=== PATIENT | female | born 1985 | race American Indian/Alaskan Native ===

== ENCOUNTER 2019-12-19 11:56 | Day surgery (SDC) | payer OTHER ==
[2019-12-19 16:44] VITALS: BP 112/66
== END 2019-12-19 11:57 | disposition home or self-care (01) ==
LOC: OR 11:56
PROVIDERS: ATTEND Surgery
DX: L02.411 Cutaneous abscess of right axilla (principal); F17.210 Nicotine dependence, cigarettes, uncomplicated; Z79.899 Other long term (current) drug therapy; Z91.040 Latex allergy status; Z98.51 Tubal ligation status; Z98.890 Other specified postprocedural states
CPT/HCPCS: 10060; 81025; 87075; 87116; J0690; J1170; J1200; J1644; J2250; J2370; J2405; J2704; J3010; J7120

== ENCOUNTER 2019-12-25 13:02 | Outpatient (CLI) | payer OTHER ==
[2019-12-25] MEDS ORDERED: LIDOCAINE (4%) 40 MG/ML TOPICAL SOLN 50 ML BOTTLE TP ONE (13:18)
== END 2019-12-25 13:03 | disposition home or self-care (01) ==
LOC: WOUND 13:02
PROVIDERS: ATTEND Surgery
DX: L73.2 Hidradenitis suppurativa (principal); F17.210 Nicotine dependence, cigarettes, uncomplicated
CPT/HCPCS: 11042; G0463; 99204; 99214

== ENCOUNTER 2020-01-08 13:06 | Outpatient (CLI) | payer OTHER ==
[2020-01-08] MEDS ORDERED: LIDOCAINE (4%) 40 MG/ML TOPICAL SOLN 50 ML BOTTLE TP ONE (13:08)
== END 2020-01-08 13:07 | disposition home or self-care (01) ==
LOC: WOUND 13:06
PROVIDERS: ATTEND Surgery
DX: L73.2 Hidradenitis suppurativa (principal); F17.210 Nicotine dependence, cigarettes, uncomplicated

== ENCOUNTER 2020-05-07 12:16 | Day surgery (SDC) | payer OTHER ==
[2020-05-07] MEDS ORDERED: ceFAZolin/STERILE WATER 2 GM/20 ML SYRINGE IV NR (13:13)
[2020-05-07] MEDS ORDERED: HEPARIN 5,000 UNIT/1 ML VIAL SUB-Q NR (13:14)
[2020-05-07] MEDS ORDERED: LACTATED RINGERS 1,000 ML IV SCH (13:23)
[2020-05-07] MEDS ORDERED: ONDANSETRON 4 MG/2 ML INJ IV PRN (13:27)
[2020-05-07] MEDS ORDERED: HYDROmorphone 1 MG/1 ML INJ IV PRN ×2 (13:27)
--- NOTE | 2020-05-07 13:30 | Anesthesia Day of Surgery ---
Anesthesia Day of Surgery - Day of Surgery Patient Examined: Yes Patient H&P Reviewed: Yes Patient is NPO: Yes
--- NOTE | 2020-05-07 13:31 | Anesthesia Consultation ---
Anesthesia Consult and Med Hx Date of service: 05/07/20 - Airway Anesthetic Teeth Evaluation: Good ROM Head & Neck: Adequate Mental/Hyoid Distance: Adequate Mallampati Class: Class I Intubation Access Assessment: Good - Pre-Operative Health Status ASA Pre-Surgery Classification: ASA2 Proposed Anesthetic Plan: General - Pulmonary Hx Smoking: Yes (THC) Hx Respiratory Symptoms: No (+2FS) - Cardiovascular System Hx Hypertension: No - Central Nervous System CVA: No - Endocrine Hx Renal Disease: No Hx Liver Disease: No Hx Insulin Dependent Diabetes: No Hx Non-Insulin Dependent Diabetes: No Hx Thyroid Disease: No - Hematic Hx Sickle Cell Disease: No - Other Systems Hx Substance Use: Yes Hx Cancer: No Hx Obesity: Yes
[2020-05-07] MEDS ORDERED: LIDOCAINE MPF (2%) 20 MG/1 ML VIAL 5 ML ONE (14:20)
[2020-05-07] MEDS ORDERED: ONDANSETRON 4 MG/2 ML INJ ONE (14:20)
[2020-05-07] MEDS ORDERED: dexAMETHasone 20 MG/5 ML VIAL ONE (14:20)
[2020-05-07] MEDS ORDERED: HYDROmorphone 1 MG/1 ML INJ ONE ×2 (14:20→15:16)
[2020-05-07] MEDS ORDERED: propofoL 200 MG/20 ML VIAL IV ONE (14:21)
[2020-05-07] MEDS ORDERED: SODIUM CHLORIDE 0.9% IRR 1,500 ML BOTTLE IR ONE (14:48)
[2020-05-07] MEDS ORDERED: BUPIVACAINE-EPINEPHRINE/PF 0.5%-1:200,000 (30 ML) VIAL INFILTRATI ONE ×2 (15:13→15:24)
[2020-05-07] MEDS ORDERED: KETOROLAC 30 MG/1 ML INJ ONE (15:41)
--- NOTE | 2020-05-07 15:50 | Procedure Note ---
Date of procedure: 05/07/20 Pre-op diagnosis: Breast abscesses X 3 Post-op diagnosis: same Procedure: I&D of breast abscesses X 3 Description of procedure: Pt was placed supine on the OR table. After adequate general anesthesia, pt's left breast and axillary area were prepped and draped. Three separate abscesses were then I&d'd with the Bovie. Two of these were located in the lower, inner quadrant and the third abscess was located within the left axillary tail. C&S was obtained from the abscess fluid of the largest abscess. Hemostasis was obtained with the Bovie. Wounds were irrigated with warm saline and packed open with dilute Betadine moistened Kerlix roll. This was followed by dry 4 X 4's and Medipore tape. Pt tolerated the procedure well. She was taken to PACU in stable condition. Anesthesia: other (LMA) Surgeon: ELAINA LOPEZ Estimated blood loss: minimal Pathology: list (C&S) Specimen disposition: to lab Condition: stable Disposition: PACU
[2020-05-07] MEDS ORDERED: diphenhydrAMINE 50 MG/ML VIAL IV ONE (16:08)
[2020-05-07 16:37] VITALS: BP 109/72
--- NOTE | 2020-05-07 16:55 | Post Anesthesia Evaluation ---
- Post Anesthesia Evaluation Patient Participated: Yes Airway Patent: Yes Stable Respiratory Function: Yes Nausea/Vomiting: No Temp > 96.8F: Yes Pain Manageable: Yes Adequeate Hydration: Yes Anesthesia Complications: No Block Receding Appropriately: Not Applicable Patient on Ventilator: No
== END 2020-05-07 16:55 | disposition home or self-care (01) ==
LOC: OR 12:16
PROVIDERS: ATTEND Surgery
DX: N61.1 Abscess of the breast and nipple (principal); F17.210 Nicotine dependence, cigarettes, uncomplicated; K21.9 Gastro-esophageal reflux disease without esophagitis; E66.9 Obesity, unspecified; M19.90 Unspecified osteoarthritis, unspecified site; Z91.040 Latex allergy status; Z79.899 Other long term (current) drug therapy; Z98.51 Tubal ligation status; Z98.890 Other specified postprocedural states; Z68.35 Body mass index [BMI] 35.0-35.9, adult
CPT/HCPCS: 10061; 81025; 87075; 87116; J0690; J1100; J1170; J1200; J1644; J1885; J2405; J2704; J7120

== ENCOUNTER 2020-05-08 09:52 | Outpatient (CLI) | payer OTHER | END 2020-05-08 09:53 | disposition home or self-care (01) | LOC: WOUND 09:52 | PROVIDERS: ATTEND Surgery | DX: L73.2 Hidradenitis suppurativa (principal); Z98.51 Tubal ligation status; F17.210 Nicotine dependence, cigarettes, uncomplicated | CPT/HCPCS: 99214; G0463 ==

== ENCOUNTER 2020-05-13 13:21 | Outpatient (CLI) | payer OTHER | END 2020-05-13 13:22 | disposition home or self-care (01) | LOC: WOUND 13:21 | PROVIDERS: ATTEND Surgery | DX: L73.2 Hidradenitis suppurativa (principal); Z98.51 Tubal ligation status; F17.210 Nicotine dependence, cigarettes, uncomplicated ==

== ENCOUNTER 2020-05-20 13:21 | Outpatient (CLI) | payer OTHER ==
[2020-05-20] MEDS ORDERED: LIDOCAINE (4%) 40 MG/ML TOPICAL SOLN 50 ML BOTTLE TP ONE (13:27)
== END 2020-05-20 13:22 | disposition home or self-care (01) ==
LOC: WOUND 13:21
PROVIDERS: ATTEND Surgery
DX: L73.2 Hidradenitis suppurativa (principal); Z98.51 Tubal ligation status; F17.210 Nicotine dependence, cigarettes, uncomplicated
CPT/HCPCS: 17250

== ENCOUNTER 2020-06-03 13:21 | Outpatient (CLI) | payer OTHER | END 2020-06-03 13:22 | disposition home or self-care (01) | LOC: WOUND 13:21 | PROVIDERS: ATTEND Surgery | DX: L73.2 Hidradenitis suppurativa (principal); F17.210 Nicotine dependence, cigarettes, uncomplicated; Z98.51 Tubal ligation status | CPT/HCPCS: 99213; G0463 ==

== ENCOUNTER 2020-09-07 08:33 | Day surgery (SDC) | payer OTHER ==
[~2020-09-07 08:33] MED LIST: BUPIVACAINE/PF (0.5%) 5 MG/1 ML 30 ML VIAL INFILTRATI ONE; LIDOCAINE 1.5% /EPINEPHRINE 1:200,000 AMP (5 ML) INFILTRATI ONE
[2020-09-07] MEDS ORDERED: HYDROmorphone 1 MG/1 ML INJ IV PRN ×2 (10:02)
[2020-09-07] MEDS ORDERED: ONDANSETRON 4 MG/2 ML INJ IV PRN (10:02)
--- NOTE | 2020-09-07 10:02 | Anesthesia Day of Surgery ---
Anesthesia Day of Surgery - Day of Surgery Patient Examined: Yes Patient H&P Reviewed: Yes Patient is NPO: Yes
--- NOTE | 2020-09-07 10:05 | Anesthesia Consultation ---
Anesthesia Consult and Med Hx Date of service: 09/07/20 - Airway Anesthetic Teeth Evaluation: Poor (Missing/broken) ROM Head & Neck: Adequate Mental/Hyoid Distance: Adequate Mallampati Class: Class II Intubation Access Assessment: Good - Pre-Operative Health Status ASA Pre-Surgery Classification: ASA2 Proposed Anesthetic Plan: General - Pulmonary Hx Smoking: Yes (THC AND 1/4 PPD) Hx Respiratory Symptoms: No (+2FS) Hx Sleep Apnea: No (ZENY PRE SCREEN LOW RISK) - Cardiovascular System Hx Hypertension: No - Central Nervous System CVA: No Hx Psychiatric Problems: Yes (Anxiety) - Gastrointestinal Hx Gastroesophageal Reflux Disease: Yes (Dietary) - Endocrine Hx Renal Disease: No Hx Liver Disease: No Hx Insulin Dependent Diabetes: No Hx Non-Insulin Dependent Diabetes: No Hx Thyroid Disease: No - Hematic Hx Anemia: Yes (NOT RECENT) Hx Sickle Cell Disease: No - Other Systems Hx Substance Use: Yes (MARIJUANA) Hx Cancer: No Hx Obesity: Yes - Additional Comments Anesthesia Medical History Comments: Here [id number] and [id number]
[2020-09-07] MEDS ORDERED: LACTATED RINGERS 1,000 ML IV SCH (10:30)
[2020-09-07] MEDS ORDERED: HEPARIN 5,000 UNIT/1 ML VIAL SUB-Q NR (10:30)
[2020-09-07] MEDS ORDERED: ceFAZolin/STERILE WATER 2 GM/20 ML SYRINGE IV NR (11:00)
[2020-09-07] MEDS ORDERED: MIDAZOLAM 2 MG/2 ML INJ IV NR (11:00)
[2020-09-07] MEDS ORDERED: HYDROmorphone 1 MG/1 ML INJ ONE ×2 (12:05→12:39)
[2020-09-07] MEDS ORDERED: LIDOCAINE MPF (2%) 20 MG/1 ML VIAL 5 ML ONE (12:06)
[2020-09-07] MEDS ORDERED: propofoL 200 MG/20 ML VIAL IV ONE (12:06)
[2020-09-07] MEDS ORDERED: dexAMETHasone 20 MG/5 ML VIAL ONE (12:32)
[2020-09-07] MEDS ORDERED: BUPIVACAINE/PF (0.5%) 5 MG/1 ML 30 ML VIAL INFILTRATI ONE (12:40)
[2020-09-07] MEDS ORDERED: SODIUM CHLORIDE 0.9% IRR 1,500 ML BOTTLE IR ONE (12:40)
[2020-09-07] MEDS ORDERED: KETOROLAC 30 MG/1 ML INJ ONE (13:00)
[2020-09-07] MEDS ORDERED: ONDANSETRON 4 MG/2 ML INJ ONE (13:11)
--- NOTE | 2020-09-07 13:23 | Procedure Note ---
Date of procedure: 09/07/20 Pre-op diagnosis: Right axillary hidradenitis suppurativa Post-op diagnosis: same Procedure: Excision of right axillary hidradenitis suppurativa Description of procedure: Pt was placed supine on the OR table. General anesthesia was administered. Right arm was abducted to 90 degrees on an arm board. Right axilla, chest and shoulder were prepped and draped. Skin and SQ tissue about the involved tissue were infiltrated with 14 ml of 0.5% Marcaine. The skin was incised with a scalpel. During the excision, I entered an abscess cavity which precluded any consideration of closing the wound. All indurated and involved hidradenitis tissue encountered was excised. The final wound measurements were: 10.5 X 6.5 X 1 cm. Hemostasis was obtained with the Bovie. Wound was irrigated with warm saline and was packed open with a dilute Betadine moistened Kerlix roll, followed by dry 4 X 4's, an ABD and Medipore tape. Pt tolerated the procedure well. She was taken to PACU in stable condition. Anesthesia: other (LMA) Surgeon: ELAINA LOPEZ Estimated blood loss: 50-100ml Pathology: list (Right axillary hidradenitis) Specimen disposition: to lab Condition: stable Disposition: PACU
[2020-09-07 17:23] VITALS: BP 122/71
== END 2020-09-07 08:34 | disposition home or self-care (01) ==
LOC: OR 08:33
PROVIDERS: ATTEND Surgery
DX: L73.2 Hidradenitis suppurativa (principal); F17.210 Nicotine dependence, cigarettes, uncomplicated; K21.9 Gastro-esophageal reflux disease without esophagitis; E66.9 Obesity, unspecified; M19.90 Unspecified osteoarthritis, unspecified site; F41.9 Anxiety disorder, unspecified; D64.9 Anemia, unspecified; Z98.890 Other specified postprocedural states; Z91.040 Latex allergy status; Z79.899 Other long term (current) drug therapy; Z98.51 Tubal ligation status; Z68.36 Body mass index [BMI] 36.0-36.9, adult
CPT/HCPCS: 11450; 81025; 88304; J0690; J1100; J1170; J1644; J1885; J2405; J2704; J7120; 88305

== ENCOUNTER 2020-09-09 10:31 | Outpatient (CLI) | payer OTHER ==
[2020-09-09] MEDS ORDERED: LIDOCAINE (4%) 40 MG/ML TOPICAL SOLN 50 ML BOTTLE TP ONE (10:39)
== END 2020-09-09 10:32 | disposition home or self-care (01) ==
LOC: WOUND 10:31
PROVIDERS: ATTEND Surgery
DX: T81.89XA Other complications of procedures, not elsewhere classified, initial encounter (principal); L73.2 Hidradenitis suppurativa; F17.210 Nicotine dependence, cigarettes, uncomplicated; Z98.51 Tubal ligation status; Y83.8 Other surgical procedures as the cause of abnormal reaction of the patient, or of later complication, without mention of misadventure at the time of the procedure; Y92.238 Other place in hospital as the place of occurrence of the external cause
CPT/HCPCS: 17250; G0463; 99214

== ENCOUNTER 2020-09-28 08:20 | Outpatient (CLI) | payer OTHER ==
[2020-09-28] MEDS ORDERED: LIDOCAINE (4%) 40 MG/ML TOPICAL SOLN 50 ML BOTTLE TP ONE (08:27)
[2020-09-28] MEDS ORDERED: SILVER NITRATE APPLICATOR 1 EA TP ONE (08:50)
== END 2020-09-28 08:21 | disposition home or self-care (01) ==
LOC: WOUND 08:20
PROVIDERS: ATTEND Surgery
DX: T81.89XD Other complications of procedures, not elsewhere classified, subsequent encounter (principal); L73.2 Hidradenitis suppurativa; F17.210 Nicotine dependence, cigarettes, uncomplicated; Z98.51 Tubal ligation status; Y83.8 Other surgical procedures as the cause of abnormal reaction of the patient, or of later complication, without mention of misadventure at the time of the procedure
CPT/HCPCS: 17250

== ENCOUNTER 2021-01-19 08:09 | Day surgery (SDC) | payer OTHER ==
[~2021-01-19 08:09] MED LIST changes: -BUPIVACAINE/PF (0.5%) 5 MG/1 ML 30 ML VIAL INFILTRATI ONE; +LACTATED RINGERS 1,000 ML IV SCH; -LIDOCAINE 1.5% /EPINEPHRINE 1:200,000 AMP (5 ML) INFILTRATI ONE; +MIDAZOLAM 2 MG/2 ML INJ IV NR
[2021-01-19] MEDS ORDERED: propofoL 200 MG/20 ML VIAL IV ONE (08:25)
[2021-01-19] MEDS ORDERED: fentaNYL 100 MCG/2 ML INJ ONE (08:25)
[2021-01-19] MEDS ORDERED: LIDOCAINE PF 100 MG/5 ML (CARDIAC SYRINGE) IV ONE (08:26)
--- NOTE | 2021-01-19 08:33 | History and Physical Report ---
History of Present Illness Date of examination: 01/19/21 Chief complaint: Right axillary hidradenitis History of present illness: 35 yo female with a h/o recurring right axillary infections secondary to hidradenitis. Past History Past Medical History: No medical history Medications and Allergies Allergies Allergy/AdvReac Type Severity Reaction Status Date / Time latex Allergy Itching Verified 05/07/20 13:15 Home Medications Medication Instructions Recorded Confirmed Last Taken Type oxyCODONE /ACETAMINOPHEN [Percocet 1 tab PO PRN PRN 01/15/21 Unknown History ] Active Meds: Active Medications Lactated Ringer's (Lactated Ringers) 1,000 mls @ 100 mls/hr IV DIRECT OCTAVIANO Stop: 01/19/21 23:59 Midazolam HCl (Midazolam 2 Mg/2 Ml Inj) 2 mg IV PREOP NR Stop: 01/19/21 23:59 Review of Systems All systems: negative (none) Exam - General physical appearance Positive: well developed, well nourished, no distress - Eyes Positive: PERRL, normal occular movement - ENT Positive: normal pinna, normal nares, normal mucosa, no hearing loss, no congestion - Neck Positive: no masses, no bruits, trachea midline, no venous distension - Respiratory Positive: normal expansion, normal respiratory effort, clear to auscultation - Cardiovascular Rhythm: regular Heart Sounds: Present: S1 & S2. Absent: rub, click - Extremities Extremities: no ischemia, pulses symmetrical, No edema - Breasts Breasts: normal, no mass, no skin changes - Abdomen Abdomen: Present: soft, bowel sounds normal. Absent: tender, distended Hernia: none - Genitourinary Male Genitourinary: normal Female Genitourinary: normal - Integumentary no rash, no growths, no abnormal pigmentation, other (Right axilla c/w chronic hidradenitis.) - Neurologic Neurologic: alert and oriented to time, place and person, motor strength and sensation are grossly intact - Musculoskeletal normal gait, normal posture - Psychiatric Psychiatric: appropriate mood/affect, intact judgment & insight Assessment and Plan - Patient Problems (1) Hidradenitis axillaris Current Visit: Yes Status: Acute Plan to address problem: 1) Excise right axillary hidradenitis 2) Prophylactic Ancef, SCD and SQ Heparin
[2021-01-19] MEDS ORDERED: HYDROcodone/ACETAMINOPHEN 5-325 MG TAB PO PRN (08:42)
[2021-01-19] MEDS ORDERED: ONDANSETRON 4 MG/2 ML INJ IV PRN (08:42)
[2021-01-19] MEDS ORDERED: HEPARIN 5,000 UNIT/1 ML VIAL SUB-Q NR (08:45)
--- NOTE | 2021-01-19 08:50 | Anesthesia Consultation ---
Anesthesia Consult and Med Hx Date of service: 01/19/21 - Airway Anesthetic Teeth Evaluation: Good ROM Head & Neck: Adequate Mental/Hyoid Distance: Adequate Mallampati Class: Class III Intubation Access Assessment: Possibly Difficult (previous LMA 3 and 4) - Pre-Operative Health Status ASA Pre-Surgery Classification: ASA2 Proposed Anesthetic Plan: General - Pulmonary Hx Smoking: Yes (1/4 PPD) Hx Respiratory Symptoms: No Hx Sleep Apnea: No (ZENY PRE SCREEN LOW RISK) - Cardiovascular System Hx Hypertension: No Hx Heart Attack/AMI: No Hx Percutaneous Transluminal Coronary Angioplasty (PTCA): No - Central Nervous System CVA: No Hx Psychiatric Problems: Yes (Anxiety) - Gastrointestinal Hx Gastroesophageal Reflux Disease: Yes (diet controlled) - Endocrine Hx Renal Disease: No Hx Liver Disease: No Hx Insulin Dependent Diabetes: No Hx Non-Insulin Dependent Diabetes: No Hx Thyroid Disease: No - Other Systems Hx Substance Use: Yes (THC) Hx Obesity: Yes (BMI 35) - Additional Comments Anesthesia Medical History Comments: No hx anesthetic complications.
--- NOTE | 2021-01-19 08:50 | Anesthesia Day of Surgery ---
Anesthesia Day of Surgery - Day of Surgery Patient Examined: Yes Patient H&P Reviewed: Yes Patient is NPO: Yes
[2021-01-19] MEDS ORDERED: ceFAZolin/Water 2 GM/20 ML 2 GM/20 ML SYRINGE IV NR (09:00)
[2021-01-19] MEDS ORDERED: predniSONE 20 MG TAB PO NR (10:00)
[2021-01-19] MEDS ORDERED: KETAMINE/STERILE WATER 50 MG/ML SYRINGE ONE (10:31)
[2021-01-19] MEDS ORDERED: HYDROmorphone 1 MG/1 ML INJ ONE (10:47)
[2021-01-19] MEDS ORDERED: SODIUM CHLORIDE 0.9% IRR 1,000 ML BOTTLE IR ONE (10:49)
[2021-01-19] MEDS ORDERED: ONDANSETRON 4 MG/2 ML INJ ONE (10:50)
[2021-01-19] MEDS ORDERED: dexAMETHasone 20 MG/5 ML VIAL ONE (10:50)
[2021-01-19] MEDS: HYDROmorphone 1 MG/1 ML INJ IV PRN ×2 (11:19→11:29)
--- NOTE | 2021-01-19 11:35 | Procedure Note ---
Date of procedure: 01/19/21 Pre-op diagnosis: Right axillary hidradenitis Post-op diagnosis: same Procedure: Excision of right axillary hidradenitis Description of procedure: Pt was placed supine on the OR table. General anesthesia was administered. Right arm was abducted to 90 degrees on an arm board. Right axilla was prepped and draped. The right axillary hidradenitis was excised with the Bovie. Hemostasis was obtained with the Bovie. Wound was packed open with a dilute Betadine moistened Kerlix roll followed by an island dressing. Pt tolerated the procedure well. Pt was taken to PACU in stable condition. Anesthesia: GETA Surgeon: ELAINA LOPEZ Estimated blood loss: minimal Pathology: list (right axillary hidradenitis tissue) Specimen disposition: to lab Condition: stable Disposition: PACU
[2021-01-19] MEDS ORDERED: oxyCODONE /ACETAMINOPHEN 5-325MG TAB PO PRN (11:41)
[2021-01-19 12:22] VITALS: BP 116/71
--- NOTE | 2021-01-19 13:01 | Post Anesthesia Evaluation ---
- Post Anesthesia Evaluation Patient Participated: Yes Airway Patent: Yes Stable Respiratory Function: Yes Nausea/Vomiting: No Temp > 96.8F: Yes Pain Manageable: Yes Adequeate Hydration: Yes Anesthesia Complications: No
== END 2021-01-19 12:30 | disposition home or self-care (01) ==
LOC: OR 08:09
PROVIDERS: ATTEND Surgery
DX: L73.2 Hidradenitis suppurativa (principal); F17.210 Nicotine dependence, cigarettes, uncomplicated; K21.9 Gastro-esophageal reflux disease without esophagitis; E66.9 Obesity, unspecified; M19.90 Unspecified osteoarthritis, unspecified site; F41.9 Anxiety disorder, unspecified; D64.9 Anemia, unspecified; Z91.040 Latex allergy status; Z79.899 Other long term (current) drug therapy; Z98.51 Tubal ligation status; Z98.890 Other specified postprocedural states; Z68.35 Body mass index [BMI] 35.0-35.9, adult
CPT/HCPCS: 11450; 81025; 88305; J0690; J1100; J1170; J1644; J2001; J2250; J2405; J2704; J3010; J3490; J7120; J7512

== ENCOUNTER 2021-01-20 10:34 | Outpatient (CLI) | payer OTHER ==
[2021-01-20] MEDS ORDERED: SODIUM CHLORIDE 0.9% IRR 500 ML BOTTLE IR ONE (13:00)
== END 2021-01-20 10:35 | disposition home or self-care (01) ==
LOC: WOUND 10:34
PROVIDERS: ATTEND Surgery
DX: L73.2 Hidradenitis suppurativa (principal); F17.210 Nicotine dependence, cigarettes, uncomplicated; Z98.51 Tubal ligation status
CPT/HCPCS: 99213; G0463